=== PATIENT | male | born 1990 | race Caucasian/White ===

== ENCOUNTER 2019-02-06 13:15 | Emergency (ER) | payer MEDICAID ==
[~2019-02-06] VITALS: Ht 180.3 cm; Wt 114.6 kg
[2019-02-06 13:22] VITALS: BP 121/68
[2019-02-06] MEDS ORDERED: IBUP-1985 PO (13:34)
[2019-02-06] MEDS ORDERED: PENI500T2 PO (13:34)
== END 2019-02-06 13:46 | disposition home or self-care (01) ==
LOC: ER 13:15
DX: K02.9 Dental caries, unspecified (principal); K08.89 Other specified disorders of teeth and supporting structures; Z59.0 Homelessness; Z56.0 Unemployment, unspecified
CPT/HCPCS: 99283

== ENCOUNTER 2023-12-09 11:11 | Emergency (ER) | payer MEDICAID ==
[~2023-12-09] VITALS: Ht 177.8 cm; Wt 121.8 kg
[~2023-12-09 11:11] MED LIST: IBUP-1985 PO
[2023-12-09 11:14] VITALS: TEMP 98.1
[2023-12-09] MEDS ORDERED: IBUP-1985 PO (14:47)
[2023-12-09] MEDS ORDERED: AMOX-117 PO (14:47)
[2023-12-09 15:12] VITALS: BP 123/83; PULSE 73; RESP 18; O2SAT 98
== END 2023-12-09 15:11 | disposition home or self-care (01) ==
LOC: ER 11:11
DX: K04.7 Periapical abscess without sinus (principal)
CPT/HCPCS: 99283